=== PATIENT | female | born 1960 | race Caucasian/White ===

== ENCOUNTER 2020-04-29 13:10 | Emergency (ER) | payer BC ==
[~2020-04-29] VITALS: Ht 160 cm; Wt 63.6 kg
[2020-04-29] MEDS: MORPHINE 4 MG/ML 1ML VIAL/SYRINGE (J2270) IV PRN ×2 (13:27→14:20)
[2020-04-29] MEDS ORDERED: ONDANSETRON 4MG/2ML VIAL IV ONE (13:30)
[2020-04-29] MEDS ORDERED: LOSA50TA88 PO (13:41)
[2020-04-29] MEDS ORDERED: propofoL 200 MG/20 ML VIAL IV ONE ×3 (14:30→17:00)
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
[2020-04-29] MEDS ORDERED: PERC5TAB12 PO ×2 (15:52→17:27)
[2020-04-29 17:14] VITALS: BP 136/69
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
--- NOTE | 2020-05-17 12:06 | REP ---
C-ARM VIEWS RIGHT ANKLE HISTORY: Fracture. TECHNIQUE: Three C-arm views right ankle are performed. FINDINGS: Osseous structures appear relatively well-appearing. Ankle mortise is anatomic. Overlying cast obscured underlying osseous detail. FLUOROSCOPY TIME: 5 seconds. MTDD
== END 2020-04-29 17:32 | disposition home or self-care (01) ==
LOC: M ED 13:10
DX: S82.61XA Displaced fracture of lateral malleolus of right fibula, initial encounter for closed fracture (principal); S93.04XA Dislocation of right ankle joint, initial encounter; V86.55XA Driver of 3- or 4- wheeled all-terrain vehicle (ATV) injured in nontraffic accident, initial encounter
CPT/HCPCS: 27840; 73590; 73610; 73620; 96374; 96375; 96376; 99285; J2270; J2405